=== PATIENT | male | born 1960 | race Caucasian/White ===

== ENCOUNTER 2016-09-15 17:35 | Emergency (ER) | payer SELFPAY ==
[~2016-09-15] VITALS: Ht 170.2 cm; Wt 68.6 kg
[~2016-09-15 17:35] MED LIST: ATORVASTATIN CA80 MG PO; EFFIENT10 MG PO; LOPRESSOR25 MG PO; NAPROSYN500 MG PO; NITROSTAT0.4 MG SL; PRILOSEC OTC20 MG PO; VALIUM10 MG PO
[2016-09-15 18:41] LABS: HEMATOCRIT 44.4 % (38.0-50.0); MCH 31.7 PG (29.0-34.0); MCHC 35.6 G/DL (30.0-36.0); MCV 89.2 FL (86-99); MEAN PLAT.VOLUME 9.8 uM^3 (9.0-12.4); PLATELET COUNT 117 K/uL (156-360); RBC DIS.WIDTH-CV 13.8 % (11.8-14.6); RBC DIS.WIDTH-SD 45.1 % (39-53); RED BLOOD COUNT 4.98 M/uL (4.00-5.50); WHITE BLOOD COUNT 6.1 K/uL (4.1-10.2)
[2016-09-15 18:51] LABS: CHLORIDE 95 mEq/L (99-109); POTASSIUM 4.5 mEq/L (3.7-5.4); SODIUM 133 mEq/L (136-147)
[2016-09-15 18:53] LABS: GLUCOSE 97 mg/dL (70-99)
[2016-09-15 18:54] LABS: ANION GAP 13 MEQ/L (2-14)
[2016-09-15 18:55] LABS: TOTAL BILIRUBIN 0.6 mg/dL (0.0-1.0)
[2016-09-15 18:56] LABS: SERUM ETHYL ALCOHOL 395 mg/dL
[2016-09-15 18:57] LABS: ALKALINE PHOSPHATASE 120 IU/L (3-129); GFR ESTIMATE (CALCULATED) > 59 mL/min/
[2016-09-15 18:58] LABS: UREA NITROGEN (BUN) 3 mg/dL (9-23)
[2016-09-15 20:05] LABS: ADD MIUA? YES; BILIRUBIN NEGATIVE; BLOOD SMALL; COLOR STRAW ((YELLOW)); GLUCOSE (STRIP) NEGATIVE; KETONES NEGATIVE; LEUKOCYTES NEGATIVE; NITRITE NEGATIVE; PROTEIN (STRIP) 30; SPECIFIC GRAVITY 1.006 (1.000-1.030); UROBILINOGEN 0.2 MG/DL (0.2-1.0)
[2016-09-15 20:11] LABS: BACTERIA NONE SEEN /HPF; EPITHELIAL CELLS NONE SEEN /HPF; MUCUS NONE SEEN /LPF; RED BLOOD CELLS 0-5 /HPF (0-5); UCUL ADDED? NO; WHITE BLOOD CELLS 0-5 /HPF (0-5)
[2016-09-15] MEDS ORDERED: VIBRAMYCIN100 MG PO (21:08)
[2016-09-15] MEDS ORDERED: ZITHROMAX Z-PA250 MG PO (21:12)
[2016-09-15 21:33] VITALS: BP 145/93
== END 2016-09-15 21:35 | disposition home or self-care (01) ==
LOC: RME 17:35 → EME 17:35 → RME 21:35
PROVIDERS: Physician Assistant
DX: J18.9 Pneumonia, unspecified organism (principal); F45.8 Other somatoform disorders; R74.9 Abnormal serum enzyme level, unspecified; E87.1 Hypo-osmolality and hyponatremia; F17.200 Nicotine dependence, unspecified, uncomplicated; Z95.5 Presence of coronary angioplasty implant and graft; I25.2 Old myocardial infarction; I10 Essential (primary) hypertension; K21.9 Gastro-esophageal reflux disease without esophagitis
CPT/HCPCS: 70491; 80053; 81003; 85027; 99281; 99284; G0480; J7030

== ENCOUNTER → 2016-10-05 | Outpatient (CLI) | payer OTHER ==
[~2016-10-05] MED LIST changes: +LIBRIUM25 MG PO; +THIAMINE HCL100 MG PO; +VIBRAMYCIN100 MG PO; +ZITHROMAX Z-PA250 MG PO
== END | disposition home or self-care (01) ==
LOC: RAD 08:43
DX: R13.10 Dysphagia, unspecified (principal)
CPT/HCPCS: 74220

== ENCOUNTER 2016-10-06 10:04 | Emergency (ER) | payer OTHER ==
[~2016-10-06] VITALS: Ht 170.2 cm; Wt 64.5 kg
[~2016-10-06 10:04] MED LIST changes: -LIBRIUM25 MG PO; -THIAMINE HCL100 MG PO
[2016-10-06 10:18] VITALS: BP 127/107
[2016-10-06 13:14] LABS: HEMATOCRIT 41.7 % (38.0-50.0); MCH 31.5 PG (29.0-34.0); MCHC 36.5 G/DL (30.0-36.0); MCV 86.3 FL (86-99); MEAN PLAT.VOLUME 9.8 uM^3 (9.0-12.4); PLATELET COUNT 119 K/uL (156-360); RBC DIS.WIDTH-CV 13.2 % (11.8-14.6); RBC DIS.WIDTH-SD 41.2 % (39-53); RED BLOOD COUNT 4.83 M/uL (4.00-5.50)
[2016-10-06 13:25] LABS: CHLORIDE 94 mEq/L (99-109); POTASSIUM 3.7 mEq/L (3.7-5.4); SODIUM 133 mEq/L (136-147)
[2016-10-06 13:26] LABS: MAGNESIUM 2.1 mg/dL (1.3-2.7)
[2016-10-06 13:27] LABS: GLUCOSE 95 mg/dL (70-99)
[2016-10-06 13:28] LABS: ANION GAP 17 MEQ/L (2-14)
[2016-10-06 13:30] LABS: SERUM ETHYL ALCOHOL 169 mg/dL
[2016-10-06 13:31] LABS: GFR ESTIMATE (CALCULATED) > 59 mL/min/
[2016-10-06 13:32] LABS: UREA NITROGEN (BUN) 3 mg/dL (9-23)
[2016-10-06] MEDS ORDERED: THIAMINE HCL100 MG PO (14:05)
[2016-10-06] MEDS ORDERED: LIBRIUM25 MG PO (14:05)
== END 2016-10-06 14:36 | disposition home or self-care (01) ==
LOC: EME 10:04 → EXP 10:04
PROVIDERS: Emergency Medicine
DX: E86.0 Dehydration (principal); F10.129 Alcohol abuse with intoxication, unspecified; Y90.6 Blood alcohol level of 120-199 mg/100 ml; I10 Essential (primary) hypertension; I25.2 Old myocardial infarction; K21.9 Gastro-esophageal reflux disease without esophagitis; F17.200 Nicotine dependence, unspecified, uncomplicated
CPT/HCPCS: 80048; 83735; 85027; 99281; 99283; G0480; J7030

== ENCOUNTER 2016-10-17 21:40 | Inpatient (IN) | payer OTHER ==
[~2016-10-17] VITALS: Ht 170.2 cm; Wt 71.0 kg
[~2016-10-17 21:40] MED LIST changes: +LIBRIUM25 MG PO; +THIAMINE HCL100 MG PO
[2016-10-17 22:57] LABS: CHLORIDE 79 mEq/L (99-109); POTASSIUM 3.1 mEq/L (3.7-5.4)
[2016-10-17 23:00] LABS: GLUCOSE 119 mg/dL (70-99)
[2016-10-17 23:01] LABS: ANION GAP 18 MEQ/L (2-14); TOTAL BILIRUBIN 0.9 mg/dL (0.0-1.0)
[2016-10-17 23:02] LABS: SERUM ETHYL ALCOHOL 28 mg/dL
[2016-10-17 23:03] LABS: ALKALINE PHOSPHATASE 80 IU/L (3-129); GFR ESTIMATE (CALCULATED) > 59 mL/min/
[2016-10-17 23:04] LABS: UREA NITROGEN (BUN) 6 mg/dL (9-23)
[2016-10-17 23:07] LABS: CREATINE KINASE 106 IU/L (1-294); LIPASE 177 U/L (1.0-51.0); TOTAL CK 106 IU/L (1-294)
[2016-10-17 23:15] LABS: CK-MB 1.5 ng/mL (0.0-4.9)
[2016-10-17 23:33] LABS: SODIUM 116 mEq/L (136-147)
[2016-10-17 23:50] LABS: EOSINOPHIL (%) 0.5 % (0-5); HEMATOCRIT 36.3 % (38.0-50.0); HEMATOLOGY COMMENT 1 SMEAR COMPATIBLE; IMMATURE GRANULOCYTE (%) 0.8 % (0.0-0.7); IMMATURE GRANULOCYTE COUNT 0.1 K/uL; INSTRUMENT ABS NEUTROPHIL CT 5.7 K/uL; LYMPHOCYTE COUNT 0.7 K/uL (1.0-2.8); MCH 31.4 PG (29.0-34.0); MCV 82.5 FL (86-99); MEAN PLAT.VOLUME 9.3 uM^3 (9.0-12.4); MONOCYTE (%) 13.3 % (3-12); NEUTROPHIL (%) 76.3 % (45-76); NEUTROPHIL COUNT 5.7 K/uL (1.8-6.4); NRBC (%) 0.3 /100 WBC (0-0); PLAT.SUFFICIENCY DECREASED; RBC DIS.WIDTH-CV 12.7 % (11.8-14.6); RBC DIS.WIDTH-SD 37.7 % (39-53); WHITE BLOOD COUNT 7.5 K/uL (4.1-10.2)
[2016-10-17 23:51] LABS: PLATELET COUNT 68 K/uL (156-360)
[2016-10-18] VITALS (8 sets, daily range): BP systolic 131–151; BP diastolic 86–96
[2016-10-18 03:54] LABS: POTASSIUM 3.1 mEq/L (3.7-5.4)
[2016-10-18 03:55] LABS: MAGNESIUM 1.7 mg/dL (1.3-2.7)
[2016-10-18 03:56] LABS: GLUCOSE 109 mg/dL (70-99)
[2016-10-18 03:57] LABS: ANION GAP 15 MEQ/L (2-14)
[2016-10-18 04:00] LABS: GFR ESTIMATE (CALCULATED) > 59 mL/min/; UREA NITROGEN (BUN) 6 mg/dL (9-23)
[2016-10-18 04:07] LABS: CHLORIDE 87 mEq/L (99-109); SODIUM 124 mEq/L (136-147)
[2016-10-18 06:40] LABS: TROP-I INTERPRETATION NEGATIVE; TROPONIN-I 0.01 ng/mL (0.0-0.30)
[2016-10-18] MEDS ORDERED: FLUOXETINE HCL20 MG PO (13:06)
[2016-10-18] MEDS ORDERED: CHLORDIAZEPOXID10 MG (13:07)
[2016-10-18] MEDS ORDERED: DEXILANT60 MG PO (13:08)
[2016-10-18 13:23] LABS: TROP-I INTERPRETATION NEGATIVE; TROPONIN-I < 0.01 ng/mL (0.0-0.30)
[2016-10-18 14:34] LABS: CHLORIDE 93 mEq/L (99-109); POTASSIUM 3.4 mEq/L (3.7-5.4); SODIUM 129 mEq/L (136-147)
[2016-10-18 14:36] LABS: GLUCOSE 96 mg/dL (70-99)
[2016-10-18 14:37] LABS: ANION GAP 13 MEQ/L (2-14)
[2016-10-18 14:40] LABS: GFR ESTIMATE (CALCULATED) > 59 mL/min/
[2016-10-18 14:41] LABS: UREA NITROGEN (BUN) 7 mg/dL (9-23)
[2016-10-18 20:18] LABS: CHLORIDE 94 mEq/L (99-109); POTASSIUM 3.2 mEq/L (3.7-5.4); SODIUM 128 mEq/L (136-147)
[2016-10-18 20:22] LABS: ANION GAP 11 MEQ/L (2-14)
[2016-10-18 20:24] LABS: GFR ESTIMATE (CALCULATED) > 59 mL/min/
[2016-10-18 20:25] LABS: UREA NITROGEN (BUN) 10 mg/dL (9-23)
[2016-10-18 20:34] LABS: GLUCOSE 164 mg/dL (70-99)
[2016-10-19 03:50] VITALS: BP 132/89
[2016-10-19 06:31] LABS: HEMATOCRIT 34.4 % (38.0-50.0); MCH 31.1 PG (29.0-34.0); MCV 86.2 FL (86-99); MEAN PLAT.VOLUME 10.8 uM^3 (9.0-12.4); PLATELET COUNT 69 K/uL (156-360); RBC DIS.WIDTH-SD 40.7 % (39-53); RED BLOOD COUNT 3.99 M/uL (4.00-5.50)
[2016-10-19 06:32] LABS: WHITE BLOOD COUNT 4.6 K/uL (4.1-10.2)
[2016-10-19 06:45] LABS: ALKALINE PHOSPHATASE 64 IU/L (3-129); ANION GAP 8 MEQ/L (2-14); CHLORIDE 91 MEQ/L (99-109); GFR ESTIMATE (CALCULATED) > 59 mL/min/; SAMPLE HEMOLYSIS CHECK 0; SAMPLE ICTERIC CHECK 0; SAMPLE LIPEMIA CHECK 0; SODIUM 127 MEQ/L (136-147); TOTAL BILIRUBIN 0.8 MG/DL (0.0-1.0); UREA NITROGEN (BUN) 7 mg/dL (9-23)
[2016-10-19 06:48] LABS: GLUCOSE 97 mg/dL (70-99)
[2016-10-19 07:30] VITALS: BP 137/89
[2016-10-19 12:15] VITALS: BP 145/78
[2016-10-19 15:48] LABS: ANION GAP 7 MEQ/L (2-14); CHLORIDE 95 MEQ/L (99-109); GFR ESTIMATE (CALCULATED) > 59 mL/min/; GLUCOSE 94 mg/dL (70-99); POTASSIUM 4.2 MEQ/L (3.7-5.4); SAMPLE HEMOLYSIS CHECK 0; SAMPLE ICTERIC CHECK 0; SAMPLE LIPEMIA CHECK 0; SODIUM 130 MEQ/L (136-147); UREA NITROGEN (BUN) 8 mg/dL (9-23)
[2016-10-19 16:36] VITALS: BP 124/86
[2016-10-19 22:41] VITALS: BP 133/81
[2016-10-20 04:52] VITALS: BP 147/83
[2016-10-20 07:52] VITALS: BP 150/87
[2016-10-20 07:52] LABS: HEMATOCRIT 34.8 % (38.0-50.0); MCH 31.7 PG (29.0-34.0); MCHC 36.2 G/DL (30.0-36.0); MCV 87.7 FL (86-99); MEAN PLAT.VOLUME 10.7 uM^3 (9.0-12.4); PLAT.SUFFICIENCY DECREASED; RBC DIS.WIDTH-CV 13.4 % (11.8-14.6); RBC DIS.WIDTH-SD 42.6 % (39-53); RED BLOOD COUNT 3.97 M/uL (4.00-5.50); WHITE BLOOD COUNT 5.5 K/uL (4.1-10.2)
[2016-10-20 07:55] LABS: ALKALINE PHOSPHATASE 65 IU/L (3-129); ANION GAP 9 MEQ/L (2-14); CHLORIDE 99 MEQ/L (99-109); GFR ESTIMATE (CALCULATED) > 59 mL/min/; GLUCOSE 99 mg/dL (70-99); POTASSIUM 3.6 MEQ/L (3.7-5.4); SAMPLE HEMOLYSIS CHECK 0; SAMPLE ICTERIC CHECK 0; SAMPLE LIPEMIA CHECK 0; SODIUM 133 MEQ/L (136-147); TOTAL BILIRUBIN 0.8 MG/DL (0.0-1.0); UREA NITROGEN (BUN) 4 mg/dL (9-23)
[2016-10-20 08:02] LABS: PLATELET COUNT 93 K/uL (156-360)
[2016-10-20 11:28] VITALS: BP 137/89
[2016-10-20 15:48] VITALS: BP 159/94
[2016-10-20 19:00] VITALS: BP 122/77
[2016-10-21 00:06] VITALS: BP 136/88
[2016-10-21 03:35] VITALS: BP 153/95
[2016-10-21 07:28] LABS: HEMATOCRIT 34.2 % (38.0-50.0); MCH 30.7 PG (29.0-34.0); MCHC 34.5 G/DL (30.0-36.0); MCV 89.1 FL (86-99); MEAN PLAT.VOLUME 9.8 uM^3 (9.0-12.4); PLATELET COUNT 118 K/uL (156-360); RBC DIS.WIDTH-CV 13.7 % (11.8-14.6); RBC DIS.WIDTH-SD 44.6 % (39-53); RED BLOOD COUNT 3.84 M/uL (4.00-5.50); WHITE BLOOD COUNT 5.1 K/uL (4.1-10.2)
[2016-10-21 07:41] VITALS: BP 156/87
[2016-10-21 07:51] LABS: ALKALINE PHOSPHATASE 62 IU/L (3-129); ANION GAP 8 MEQ/L (2-14); CHLORIDE 101 MEQ/L (99-109); GFR ESTIMATE (CALCULATED) > 59 mL/min/; GLUCOSE 105 mg/dL (70-99); POTASSIUM 3.8 MEQ/L (3.7-5.4); SAMPLE HEMOLYSIS CHECK 0; SAMPLE ICTERIC CHECK 0; SAMPLE LIPEMIA CHECK 0; SODIUM 135 MEQ/L (136-147); UREA NITROGEN (BUN) 6 mg/dL (9-23)
[2016-10-21 08:15] LABS: TOTAL BILIRUBIN 0.5 MG/DL (0.0-1.0)
[2016-10-21 10:44] VITALS: BP 143/68
[2016-10-21 15:13] VITALS: BP 153/93
[2016-10-21 19:21] VITALS: BP 163/58
[2016-10-22 00:08] LABS: POINT-OF-CARE METER ID UU13113725
[2016-10-22 00:49] VITALS: BP 126/91
[2016-10-22 03:45] VITALS: BP 139/85
[2016-10-22] MEDS ORDERED: CHLORDIAZEPOXID25 MG PO (06:29)
[2016-10-22] MEDS ORDERED: NICOTINE PATCH1 EAC2 TD (06:29)
[2016-10-22] MEDS ORDERED: PANTOPRAZOLE SO40 MG PO (06:30)
[2016-10-22 07:59] LABS: HEMATOCRIT 32.9 % (38.0-50.0); MCHC 34.3 G/DL (30.0-36.0); MCV 90.1 FL (86-99); MEAN PLAT.VOLUME 10.3 uM^3 (9.0-12.4); PLATELET COUNT 149 K/uL (156-360); RBC DIS.WIDTH-CV 13.8 % (11.8-14.6); RBC DIS.WIDTH-SD 45.3 % (39-53); RED BLOOD COUNT 3.65 M/uL (4.00-5.50); WHITE BLOOD COUNT 5.9 K/uL (4.1-10.2)
[2016-10-22 08:00] VITALS: BP 165/96
[2016-10-22 08:20] LABS: ALKALINE PHOSPHATASE 65 IU/L (3-129); ANION GAP 9 MEQ/L (2-14); CHLORIDE 102 MEQ/L (99-109); GFR ESTIMATE (CALCULATED) > 59 mL/min/; GLUCOSE 112 mg/dL (70-99); POTASSIUM 3.5 MEQ/L (3.7-5.4); SAMPLE HEMOLYSIS CHECK 0; SAMPLE ICTERIC CHECK 0; SAMPLE LIPEMIA CHECK 0; SODIUM 138 MEQ/L (136-147); TOTAL BILIRUBIN 0.4 MG/DL (0.0-1.0); UREA NITROGEN (BUN) 8 mg/dL (9-23)
[2016-10-22 16:22] VITALS: BP 138/90
[2016-10-22 19:40] VITALS: BP 136/89
[2016-10-22 23:36] VITALS: BP 151/88
[2016-10-23 03:42] VITALS: BP 129/77
[2016-10-23 05:34] LABS: HEMATOCRIT 31.6 % (38.0-50.0); MCH 30.9 PG (29.0-34.0); MCHC 34.2 G/DL (30.0-36.0); MCV 90.3 FL (86-99); MEAN PLAT.VOLUME 10.2 uM^3 (9.0-12.4); PLATELET COUNT 169 K/uL (156-360); RBC DIS.WIDTH-CV 14.2 % (11.8-14.6); RBC DIS.WIDTH-SD 46.9 % (39-53); WHITE BLOOD COUNT 6.2 K/uL (4.1-10.2)
[2016-10-23 05:58] LABS: ALKALINE PHOSPHATASE 58 IU/L (3-129); ANION GAP 6 MEQ/L (2-14); CHLORIDE 101 MEQ/L (99-109); GFR ESTIMATE (CALCULATED) > 59 mL/min/; GLUCOSE 115 mg/dL (70-99); POTASSIUM 3.5 MEQ/L (3.7-5.4); SAMPLE HEMOLYSIS CHECK 0; SAMPLE ICTERIC CHECK 0; SAMPLE LIPEMIA CHECK 0; SODIUM 135 MEQ/L (136-147); TOTAL BILIRUBIN 0.4 MG/DL (0.0-1.0); UREA NITROGEN (BUN) 5 mg/dL (9-23)
[2016-10-23 07:51] VITALS: BP 158/101
[2016-10-23 12:38] VITALS: BP 137/85
[2016-10-23 18:56] VITALS: BP 150/98
[2016-10-23 19:30] VITALS: BP 131/85
[2016-10-23 23:03] VITALS: BP 140/88
[2016-10-24] VITALS (8 sets, daily range): BP systolic 134–188; BP diastolic 65–110
[2016-10-24 07:31] LABS: HEMATOCRIT 32.8 % (38.0-50.0); MCHC 34.5 G/DL (30.0-36.0); MCV 90.1 FL (86-99); MEAN PLAT.VOLUME 9.9 uM^3 (9.0-12.4); PLATELET COUNT 185 K/uL (156-360); RBC DIS.WIDTH-CV 13.9 % (11.8-14.6); RED BLOOD COUNT 3.64 M/uL (4.00-5.50); WHITE BLOOD COUNT 6.6 K/uL (4.1-10.2)
[2016-10-24 07:51] LABS: ALKALINE PHOSPHATASE 62 IU/L (3-129); ANION GAP 7 MEQ/L (2-14); CHLORIDE 99 MEQ/L (99-109); GFR ESTIMATE (CALCULATED) > 59 mL/min/; GLUCOSE 103 mg/dL (70-99); POTASSIUM 3.7 MEQ/L (3.7-5.4); SAMPLE HEMOLYSIS CHECK 0; SAMPLE ICTERIC CHECK 0; SAMPLE LIPEMIA CHECK 0; SODIUM 135 MEQ/L (136-147); TOTAL BILIRUBIN 0.4 MG/DL (0.0-1.0); UREA NITROGEN (BUN) 6 mg/dL (9-23)
[2016-10-25 03:45] VITALS: BP 137/88
[2016-10-25 08:52] VITALS: BP 155/93
[2016-10-25 11:26] VITALS: BP 140/95
[2016-10-25 15:54] VITALS: BP 138/77
[2016-10-25 19:46] VITALS: BP 164/93
[2016-10-25 23:16] VITALS: BP 136/83
[2016-10-26 03:07] VITALS: BP 148/89
[2016-10-26 08:17] LABS: ANION GAP 11 MEQ/L (2-14); CHLORIDE 99 MEQ/L (99-109); GFR ESTIMATE (CALCULATED) > 59 mL/min/; GLUCOSE 98 mg/dL (70-99); SAMPLE HEMOLYSIS CHECK 0; SAMPLE ICTERIC CHECK 0; SAMPLE LIPEMIA CHECK 0; SODIUM 137 MEQ/L (136-147); UREA NITROGEN (BUN) 6 mg/dL (9-23)
[2016-10-26 11:45] VITALS: BP 132/83
== END 2016-10-26 16:11 | disposition home or self-care (01) | DRG 641 ==
LOC: EME → EDBD 21:40 → EDOF 10-18 02:17 → 4EAST 10-18 02:17 → 5EAST 10-19 18:28
PROVIDERS: Emergency Medicine; Hospitalist; Internal Medicine
DX: E87.1 Hypo-osmolality and hyponatremia (principal); R56.9 Unspecified convulsions; E86.0 Dehydration; I25.10 Atherosclerotic heart disease of native coronary artery without angina pectoris; E87.8 Other disorders of electrolyte and fluid balance, not elsewhere classified; E87.6 Hypokalemia; F17.210 Nicotine dependence, cigarettes, uncomplicated; F32.9 Major depressive disorder, single episode, unspecified; I10 Essential (primary) hypertension; E78.5 Hyperlipidemia, unspecified; F17.200 Nicotine dependence, unspecified, uncomplicated; K21.9 Gastro-esophageal reflux disease without esophagitis; K22.70 Barrett's esophagus without dysplasia; R13.10 Dysphagia, unspecified; K22.4 Dyskinesia of esophagus; K70.10 Alcoholic hepatitis without ascites; R62.7 Adult failure to thrive; F10.239 Alcohol dependence with withdrawal, unspecified; F10.229 Alcohol dependence with intoxication, unspecified; K76.0 Fatty (change of) liver, not elsewhere classified; Z71.6 Tobacco abuse counseling; Z68.23 Body mass index [BMI] 23.0-23.9, adult
CPT/HCPCS: 70450; 72125; 76705; 80048; 80048 91; 80053; 81003; 82550; 82553; 82948; 83690; 83735; 83930; 83935; 84300; 84443; 84484; 85025; 85027; 87493; 93005; 97530 GO; 97530 GP; 99281; 99285; G0480; J1650; J2060; J2597; J3475; J3480; J7030; J7040; J7070; S0028